=== PATIENT | female | born 1950 | race Caucasian/White ===

== ENCOUNTER → 2017-01-22 | Day surgery (SDC) | payer OTHER, MEDICAID ==
[~2017-01-22] MED LIST: ALPR.5 PO; BACITRACIN IM FOR SOLN 50,000 UNIT VIAL ONE; BUPIVACAINE/EPINEPHRINE 0.25% 50 ML VIAL ONE; DULO1CAP2 PO; ECHI80CA PO; FIORINAL2 PO; FLUT50SP EACH NARE; GENTAMICIN SULFATE 80 MG/2 ML VIAL ONE; LACTATED RINGER'S 1000 ML INJ 1,000 ML ONE; LEVO100T5 PO; MIDAZOLAM HCL 2 MG/2 ML VIAL ONE; MOBI7.5T PO; MORPHINE SULFATE 4 MG/ML INJ ONE; NEUR300C PO; ONDANSETRON HCL 4 MG/2 ML VIAL IV PUSH ONE; PANT40TA3 PO; POTA75TA PO; PROPOFOL 200 MG/20 ML AMP IV ONE; SODIUM CHLOR 0.9% 250 ML INJ 250 ML IV ONE; SODIUM CHLORIDE 0.9% 20 ML VIAL ONE; TRAM50TA PO; TRAZ50TA12 PO; VANCOMYCIN HCL 1000 MG VIAL ONE; VENTAER INH; VITA100018 PO; ceFAZolin 2 GM PREMIX 50 ML ONE; ceFAZolin INJ 1,000 MG VIAL ONE; oxyCODONE/ACETAMINOPHEN 5 MG/325 MG TAB ONE
--- NOTE | 2017-01-22 10:40 | TN ---
cc: LORA SMILEY M.D. DATE OF SURGERY 01/22/2017 PREOPERATIVE DIAGNOSIS Left knee medial compartment severe osteoarthritis, osteonecrosis, genu varus deformity. POSTOPERATIVE DIAGNOSIS Left knee medial compartment severe osteoarthritis, osteonecrosis, genu varus deformity. PROCEDURE Left knee medial unicondylar arthroplasty, partial patellectomy SURGEON Renny Smiley MD ASSESSMENT Renetta Smiley MD, Kathleen Gomez PA-C SPECIMENS None ESTIMATED BLOOD LOSS Minimum COMPLICATIONS None ANESTHESIA General DRAINS One TOURNIQUET TIME 39 minutes at 250 mmHg CONDITION Stable PLAN OF ACTIVITY Per orders. PROCEDURE My assistant cook Gene Smiley MD was present for the entire surgical case. He was medically necessary for the entire case because of the complexity case and to facilitate the performance of the procedure. The [facility] at the back table was not a skill set for this case to manipulate the instruments e.g. the multiple different types of soft tissue retractors, trial implants and permanent plans including bone cement. The patient was brought into the operating room and had satisfactory general anesthesia by Dr. Victor Hugo Curry of the Department of Anesthesia. The left lower extremity was prepped and draped in the usual sterile manner. The extremity was exsanguinated by Bg wrap and tourniquet inflated to 250 mmHg. A small anterior medial exposure to the knee was made. 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 Partial patellectomy was performed using an oscillating saw with removal of a small portion of the medial facette. The patient was found to have severe osteoarthritis involving the medial compartment. The patient was also found to have osteochondrosis desiccans with osteonecrosis involving the medial femoral condyle. This was toward the anterior aspect of the medial femoral condyle. Using the [employer] unicondylar arthroplasty system, a guide was used for the posterior condyle cut. The proximal tibia, a bur was used to prepare the proximal tibia. This was to accept a #1 6.5 mm tibial component. The femur was prepared in a manner to accept a #1 left medial femoral component. Trial reduction was made. The patient was found to have both excellent balance in flexion/extension. All trial were removed and preparation for cementing was made. One package of Biomet high viscosity bone cement was used. First the tibial component was cemented which was a #1 6.5 mm tibial component followed by the femoral component was a #1 left medial femoral component. All excess bone cement was removed. Bone cement was hard allowed to harden for nine minutes. The wound was irrigated. All excess bone cement was removed. The wound was irrigated with copious amounts of sterile saline antibiotic solution. The wound itself was dry. The wound was closed over an eighth inch Hemovac drain. The wound was closed in routine manner. The capsule was repaired using multiple #2 Tycron sutures. Subcutaneous tissues closed in layers with 2-0 Vicryl, skin approximated with a running subcuticular 3-0 Vicryl and Steri-Strips placed over the incision. The patient tolerated the procedure and arrived in the Recovery Room in stable and satisfactory condition. Also, 50 cc of 0.25% Marcaine was used during the surgery to anesthetize the knee joint and provide postoperative hemostasis and analgesia. MD HELEN Johnson/ASHTYN /8:28 AM /10:27 AM
== END | disposition home or self-care (01) ==
LOC: ESDC 06:08
PROVIDERS: ATTEND Orthopaedic Surgery Orthopaedic Surgery of the Spine
DX: M17.12 Unilateral primary osteoarthritis, left knee (principal); M21.162 Varus deformity, not elsewhere classified, left knee
CPT/HCPCS: 01400; 27446; C1776; J0690; J1580; J2250; J2270; J2405; J3010; J3370; J7050; J7120